=== PATIENT | female | born 1985 | race Caucasian/White ===

== ENCOUNTER → 2016-06-03 | Outpatient (CLI) | payer BC ==
[~2016-06-03] MED LIST: LEVO100T PO; LEVO200T PO; MTR600X PO; PRENTAB26 PO
[2016-06-03 18:47] LABS: THYROID STIMULATING HORMONE 1.09 uIu/ml (0.300-4.500)
== END | disposition home or self-care (01) ==
LOC: C.LAB 16:20
PROVIDERS: ATTEND Internal Medicine Endocrinology, Diabetes & Metabolism
DX: E05.00 Thyrotoxicosis with diffuse goiter without thyrotoxic crisis or storm (principal); O99.283 Endocrine, nutritional and metabolic diseases complicating pregnancy, third trimester; Z3A.28 28 weeks gestation of pregnancy; Z92.3 Personal history of irradiation

== ENCOUNTER → 2016-06-14 | Outpatient (CLI) | payer BC | END | disposition home or self-care (01) | LOC: C.LABSPEC 15:23 | PROVIDERS: ATTEND Obstetrics & Gynecology | DX: Z34.03 Encounter for supervision of normal first pregnancy, third trimester (principal) ==

== ENCOUNTER 2016-06-23 14:09 | Outpatient (CLI) | payer BC ==
[2016-06-24] MEDS ORDERED: LEVO100T PO (15:05)
[2016-06-24] MEDS ORDERED: PRENTAB26 PO (15:05)
[2016-06-24] MEDS ORDERED: LEVO200T PO (15:05)
== END 2016-06-23 16:00 | disposition home or self-care (01) ==
LOC: C.LD 14:09 → C.OPB 14:09
PROVIDERS: ATTEND Obstetrics & Gynecology
DX: O99.89 Other specified diseases and conditions complicating pregnancy, childbirth and the puerperium (principal); R03.0 Elevated blood-pressure reading, without diagnosis of hypertension; R51 Headache; Z3A.36 36 weeks gestation of pregnancy

== ENCOUNTER 2016-06-24 13:25 | Inpatient (IN) | payer BC ==
[~2016-06-24] VITALS: Ht 172.7 cm; Wt 78.6 kg
[2016-06-24] MEDS ORDERED: LACTATED RINGER'S 1000ML 1,000 ML IV PRN (13:49)
[2016-06-24 13:57] VITALS: Ht 172.7 cm; Wt 78.6 kg
[2016-06-24 14:12] LABS: HEMATOCRIT 33.8 % (37-47); MEAN CELL VOLUME 85.1 fL (80-100); MEAN CORPUSCULAR HEMOGLOBIN 29.5 pg (25-34); MEAN CORPUSCULAR HGB CONC 34.6 g/dl (32-36); MEAN PLATELET VOLUME 11.6 fL (7.4-10.4); PLATELET COUNT 152 K/uL (130-400); RED BLOOD COUNT 3.97 M/uL (4.2-5.4); WHITE BLOOD COUNT 7.25 K/uL (4.8-10.8)
[2016-06-24] MEDS ORDERED: MISOPROSTOLTAB 50 MCG TAB PO ONE (14:15)
[2016-06-24] MEDS ORDERED: PRENTAB26 PO (15:05)
[2016-06-24] MEDS ORDERED: LEVO200T PO (15:05)
[2016-06-24] MEDS ORDERED: LEVO100T PO (15:05)
[2016-06-24] MEDS ORDERED: NURSING VERBAL MED ORDER ONE (19:15)
[2016-06-24] MEDS ORDERED: DINOPROSTONE 10 MG INSERT PV SCH (19:25)
[2016-06-25] MEDS ORDERED: LEVOTHYROXINE 200 MCG TAB PO SCH (11:30)
[2016-06-25] MEDS ORDERED: DINOPROSTONE 10 MG INSERT PV ONE (14:00)
[2016-06-25] MEDS: LACTATED RINGER'S 1000ML 1,000 ML IV SCH (14:07)
[2016-06-25] MEDS: BUTORPHANOL TARTRATE 1 MG/ML VIAL IV PRN ×3 (14:12→21:41)
[2016-06-25] MEDS ORDERED: SODIUM CHLORIDE 0.65% NA SOLN 45 ML (OCEAN) ONE (20:22)
[2016-06-25] MEDS ORDERED: SODIUM CHLORIDE 0.65% NA SOLN 45 ML (OCEAN) PRN (20:30)
[2016-06-25] MEDS ORDERED: NURSING DECISION MEDICATION ORDER SCH (20:30)
[2016-06-25] MEDS ORDERED: FENTANYL 2MCG/ML ROPIV 1.25MG/ML 100ML BAG EPI ONE (22:19)
[2016-06-25] MEDS ORDERED: EpHEDrine SULFATE INJ 50 MG/ML AMP ONE (22:19)
[2016-06-25] MEDS ORDERED: BUPIVACAINE 0.25% 30 ML VIAL ONE (22:19)
[2016-06-25] MEDS ORDERED: FENTANYL CITRATE INJ 50 MCG/1 ML 2 ML VIAL ONE (22:20)
[2016-06-25] MEDS ORDERED: LACTATED RINGER'S 1000ML 500 ML IV PRN ×2 (23:32→23:40)
[2016-06-25] MEDS ORDERED: NALOXONE HCL INJ 1 MG in SODIUM CHLORIDE 0.9% 1000ML 1,000 ML IV PRN (23:32)
[2016-06-25] MEDS ORDERED: ONDANSETRON INJ 2 MG/ML 2 ML VIAL IV PRN (23:45)
[2016-06-25] MEDS ORDERED: NALBUPHINE HCL INJ 10 MG/ML AMP IV PRN (23:45)
[2016-06-25] MEDS ORDERED: EpHEDrine SULFATE INJ 50 MG/ML AMP IV PRN (23:45)
[2016-06-25] MEDS ORDERED: NALOXONE HCL INJ 0.4 MG/1 ML VIAL/CARP IV PRN (23:45)
[2016-06-25] MEDS ORDERED: FENTANYL 2MCG/ML ROPIV 1.25MG/ML 100ML BAG EPI PRN (23:45)
[2016-06-25] MEDS ORDERED: DiphenhydrAMINE HCL 50 MG/ML VIAL IV PRN (23:45)
[2016-06-25] MEDS ORDERED: OXYTOCIN 30 UNITS/500ML NSS IV PRN (23:45)
[2016-06-26] MEDS: LACTATED RINGER'S 1000ML 1,000 ML IV SCH (00:51)
[2016-06-26] MEDS ORDERED: DIPHTHERIA/TETANUS/PERTUSSIS 0.5 ML SYR/VIAL IM. ONE (07:00)
[2016-06-26] MEDS ORDERED: OXYTOCIN 30 UNITS/500ML NSS IV PRN (07:00)
[2016-06-26] MEDS ORDERED: LANOLIN OINT EXT PRN ×2 (07:00)
[2016-06-26] MEDS ORDERED: NURSING VERBAL MED ORDER ONE (07:00)
[2016-06-26] MEDS ORDERED: ACETAMINOPHEN/CODEINE 300/30MG TAB PO PRN (07:00)
[2016-06-26] MEDS ORDERED: OXYCODONE/ACETAMINOPHEN 5-325 TAB PO PRN (07:00)
[2016-06-26] MEDS ORDERED: SUPERCREAM 0.870 % 15GM JAR EXT PRN (07:00)
[2016-06-26] MEDS ORDERED: HYDROCORTISONE ACETATE 25 MG SUPP PR PRN (07:00)
[2016-06-26] MEDS ORDERED: ACETAMINOPHEN 325 MG TAB PO PRN (07:00)
[2016-06-26] MEDS ORDERED: BENZOCAINE 20% AER SPR 82.5 GM CAN EXT PRN (07:00)
--- NOTE | 2016-06-26 07:01 | Anesthesia Procedure Note ---
Anesthesia Epidural Removal Nt Date & Time Jun 26, 2016 at 07:02 Vital Signs Pain Intensity: 0.0 Notes Mental Status: alert / awake / arousable, participated in evaluation Nausea / Vomiting: adequately controlled Pain: adequately controlled Airway Patency, RR, SpO2: stable & adequate BP & HR: stable & adequate Hydration State: stable & adequate Neuraxial Anesthesia: was administered, sensory block is resolving Anesthetic Complications: no major complications apparent, pt satisfied with anesthetic care Epidural: removed without complications, with tip intact
[2016-06-26] MEDS ORDERED: LEVOTHYROXINE 100 MCG TAB PO SCH (07:30)
[2016-06-26] MEDS ORDERED: MTR600X PO (07:56)
--- NOTE | 2016-06-26 07:59 | Discharge Instructions ---
Discharge Instructions Admission Reason for Admission: Induction Discharge Discharge Diagnosis / Problem: PREMATURE RUPTURE OF MEMBRANES Discharge Goals Goal(s): Decrease discomfort, Improve nutritional status Activity Recommendations Activity Limitations: as noted below Lifting Limitations: no more than 10 pounds Exercise/Sports Limitations: until after follow-up appointment May Resume Sexual Activity: after follow-up appointment Shower/Bathe: no limitations Driving or Machine Use: resume 3 days after discharge . Instructions / Follow-Up Instructions / Follow-Up . ACTIVITY RECOMMENDATIONS: * Vaginal rest (no tampons, douching, intercourse) until after doctor 's visit. * control as discussed with doctor. * Wear a bra for 24 hours/day for comfort. SPECIAL CARE INSTRUCTIONS: Medications: * vitamins, one tablet daily. Continue taking until prescription is complete. Call you doctor if: * Temperature greater than or equal to 100.4 degrees F or 38.0 degrees C. * Bleeding becomes heavier than the heaviest part of your period - saturating a sanitary pad within an hour. * Passing large clots. * Unrelieved pain. * Bleeding has a foul smelling odor. * Signs and symptoms of phlebitis: leg pain, warm, red or swollen area on leg. incision has increased pain, redness, swelling, presence of any drainage, or if the incision starts to open up. FOLLOW UP VISIT: If appointment is not already scheduled: Please call doctor's office to schedule a follow-up appointment. Current Hospital Diet Patient's current hospital diet: Regular OB Diet Discahrge Diet Recommended Diet: Regular OB Diet Fluid Restriction: None Pending Studies Studies pending at discharge: no Medical Emergencies . Who to Call and When: Medical Emergencies: If at any time you feel your situation is an emergency, please call 911 immediately. . Non-Emergent Contact Non-Emergency issues call your: Primary Care Provider . . "Provider Documentation" section prepared by Ranjit Geller. VTE Core Measure Inpt VTE Proph given/why not?: Treatment not indicated
[2016-06-26] MEDS: DOCUSATE SODIUM 100 MG CAP PO SCH ×2 (08:15→20:07)
[2016-06-26] MEDS: FERROUS SULFATE 325 MG TAB PO SCH (08:15)
[2016-06-26] MEDS: IBUPROFEN 600 MG TAB PO PRN ×2 (08:15→13:58)
[2016-06-26] MEDS: PRENATAL VITAMIN TAB PO SCH (08:15)
[2016-06-26 10:05] VITALS: BP 130/76; PULSE 81; TEMP 36.6
[2016-06-26 12:20] VITALS: BP 125/74; PULSE 78; TEMP 36.7
--- NOTE | 2016-06-26 14:22 | DELIVERY SUMMARY ---
DATE OF OPERATION: 06/26/2016 A 30-year-old 1, para 1 dated with an early ultrasound. Her due date is 07/14/2016. Blood type is A positive, rubella immune. Vaginal beta strep negative, was complicated by toxemia , was followed in the office for several days, her blood pressure remained high. She had periodic headaches and she started to spill protein. Once she started to spill protein and sustained elevated blood pressure at approximately 37 weeks, she was brought in for induction. Induction was long, started with p.o. Cytotec 50 mcg and a Cervidil tape, then another Cervidil tape. After about 7 hours of the second Cervidil tape membranes ruptured spontaneously. Fluid was clear. She was then about 4-5 cm. She received epidural anesthesia and then contractions were augmented with IV Pitocin. She gradually went to full dilatation and the infant started to crown. There was a lot of peritoneal distention and after letting her push on the peritoneum for a good 30 or 40 minutes, we finally cut it midline at ease and she delivered a live male via direct occiput anterior over a midline episiotomy. There was a nuchal cord, which was easily reduced over the head. was suctioned through the mouth and the nose. Cord was clamped, cut by the father. Cord blood was taken for blood banking, then after that some additional cord blood was sent to the lab. Estimation of 1 and 5 minute Apgars were 5 and 7 respectively. looked somewhat small for gestational age. A second-degree laceration was repaired with 2-0 Vicryl. 2-0 Vicryl was used to repair the vaginal mucosa out and to beyond the hymenal ring. Two deep sutures of 2-0 Vicryl was used to approximate the peritoneal body and a separate deep suture was used to approximate the bulbocavernosus muscle. A separate deep suture was used to approximate the perirectal capsule and then a running subcuticular suture of 2-0 Vicryl was used to approximate the peritoneal skin edges. Following this, vag exam revealed no hematoma formation or sponges in the vagina. Estimated blood loss was 200 mL. I attest to the content of the Intraoperative Record and any orders documented therein. Any exceptio ns are noted below.
[2016-06-26 15:30] VITALS: BP 110/71; PULSE 75; TEMP 37
[2016-06-26] MEDS: ACETAMINOPHEN/CODEINE 300/30MG TAB PO PRN (20:08)
[2016-06-26 20:20] VITALS: BP 127/83; PULSE 84; TEMP 37.7
[2016-06-27 00:45] VITALS: BP 126/84; PULSE 94; TEMP 36.7
[2016-06-27 04:00] VITALS: BP 109/70; PULSE 80; TEMP 36.6
[2016-06-27] MEDS: IBUPROFEN 600 MG TAB PO PRN ×4 (04:02→21:16)
[2016-06-27] MEDS: ACETAMINOPHEN/CODEINE 300/30MG TAB PO PRN (04:03)
[2016-06-27 06:56] LABS: HEMATOCRIT 26.7 % (37-47)
[2016-06-27 07:20] VITALS: BP 116/79; PULSE 81; TEMP 36.7; O2SAT 98
[2016-06-27] MEDS: LEVOTHYROXINE 200 MCG TAB PO SCH (07:21)
--- NOTE | 2016-06-27 07:46 | Progress Note ---
Subjective Jun 27, 2016. Subjective conversation w/ patient Ambulation: ambulating normally Voiding: no voiding problems Passing Gas: Yes Diet Tolerance: Regular Diet Lochia: Small Review of Systems Constitutional: + fever Objective Vital Signs Date Time Temp Pulse Resp B/P Pulse Ox O2 Delivery O2 Flow Rate FiO2 06/27/16 04:00 36.6 80 18 109/70 06/27/16 00:45 Room Air 06/27/16 00:45 36.7 94 18 126/84 06/26/16 20:20 37.7 84 18 127/83 Room Air 06/26/16 15:30 Room Air 06/26/16 15:30 37.0 75 20 110/71 Room Air 06/26/16 12:20 36.7 78 20 125/74 06/26/16 10:05 36.6 81 20 130/76 Room Air 06/26/16 10:05 Room Air Physical Exam General Appearance: WELL-APPEARING Respiratory/Chest: lungs clear Abdomen: normal bowel sounds, non tender Fundus: Firm, Non-Tender Extremities: no pedal edema, no calf tenderness Laboratory Results Last 24 Hours Test 06/27/16 06:31 Hemoglobin 9.3 g/dL Hematocrit 26.7 % Assessment and Plan Post- Day#: 1
[2016-06-27] MEDS: DOCUSATE SODIUM 100 MG CAP PO SCH ×2 (08:41→21:16)
[2016-06-27] MEDS: FERROUS SULFATE 325 MG TAB PO SCH (08:41)
[2016-06-27] MEDS: PRENATAL VITAMIN TAB PO SCH (08:41)
[2016-06-27 15:40] VITALS: BP 122/83; PULSE 87; TEMP 36.6; O2SAT 97
[2016-06-27] MEDS ORDERED: BISACODYL 5 MG TABEC PO SCH (20:00)
[2016-06-27 23:40] VITALS: BP 126/81; PULSE 78; TEMP 36.8
[2016-06-28] MEDS ORDERED: BISACODYL 10 MG SUPP PR PRN (07:00)
[2016-06-28] MEDS: FERROUS SULFATE 325 MG TAB PO SCH (07:22)
[2016-06-28] MEDS: LEVOTHYROXINE 200 MCG TAB PO SCH (07:22)
[2016-06-28] MEDS: DOCUSATE SODIUM 100 MG CAP PO SCH ×2 (07:23→20:56)
[2016-06-28] MEDS: PRENATAL VITAMIN TAB PO SCH (07:23)
[2016-06-28 07:58] VITALS: BP 123/82; PULSE 82; TEMP 36.7; O2SAT 98
[2016-06-28] MEDS: IBUPROFEN 600 MG TAB PO PRN ×4 (08:34→20:56)
--- NOTE | 2016-06-28 09:22 | Progress Note ---
Subjective Jun 28, 2016. Subjective conversation w/ patient Ambulation: ambulating normally Voiding: no voiding problems Passing Gas: Yes Diet Tolerance: Regular Diet Lochia: Small Feeding Type: Breast Feeding Review of Systems Constitutional: + fever Objective Vital Signs Date Time Temp Pulse Resp B/P Pulse Ox O2 Delivery O2 Flow Rate FiO2 06/28/16 08:05 Room Air 06/28/16 07:58 36.7 82 18 123/82 98 Room Air 06/28/16 07:30 Room Air 06/27/16 23:40 Room Air 06/27/16 23:40 36.8 78 18 126/81 Room Air 06/27/16 15:40 Room Air 06/27/16 15:40 36.6 87 16 122/83 97 Room Air Physical Exam General Appearance: WELL-APPEARING Respiratory/Chest: lungs clear Abdomen: non tender Fundus: Firm, Non-Tender Extremities: no pedal edema, no calf tenderness Assessment and Plan Post- Day#: 2
--- NOTE | 2016-06-28 09:23 | History & Physical Bridge Note ---
H&P Re-Evaluation Bridge Note: I have examined the patient, reviewed the History & Physical and in the interval since the performance of the History & Physical I have noted the following changes of clinical significance: No changes noted
[2016-06-28 16:45] VITALS: BP 118/79; PULSE 78; TEMP 36.8; O2SAT 98
[2016-06-28 18:30] VITALS: BP_DIAS 79; PULSE 78; TEMP 36.8
== END 2016-06-28 21:00 | disposition home or self-care (01) | DRG 774 ==
LOC: C.LD 13:25 → C.OBG 06-26 10:17
PROVIDERS: ADMIT Obstetrics & Gynecology; ATTEND Obstetrics & Gynecology
PROC: 0W8NXZZ Division of Female Perineum, External Approach (ICD-10-PCS; principal; 2016-06-26)
PROC: 3E0P7GC Introduction of Other Therapeutic Substance into Female Reproductive, Via Natural or Artificial Opening (ICD-10-PCS; principal; 2016-06-26)
PROC: 3E033VJ Introduction of Other Hormone into Peripheral Vein, Percutaneous Approach (ICD-10-PCS; principal; 2016-06-26)
PROC: 10E0XZZ Delivery of Products of Conception, External Approach (ICD-10-PCS; principal; 2016-06-26)
PROC: 0KQM0ZZ Repair Perineum Muscle, Open Approach (ICD-10-PCS; principal; 2016-06-26)
DX: O14.94 Unspecified pre-eclampsia, complicating childbirth (principal); O99.42 Diseases of the circulatory system complicating childbirth; O69.81X0 Labor and delivery complicated by cord around neck, without compression, not applicable or unspecified; O42.92 Full-term premature rupture of membranes, unspecified as to length of time between rupture and onset of labor; R01.1 Cardiac murmur, unspecified; O70.1 Second degree perineal laceration during delivery; O99.284 Endocrine, nutritional and metabolic diseases complicating childbirth; E03.9 Hypothyroidism, unspecified; Z37.0 Single live birth; Z3A.37 37 weeks gestation of pregnancy; Z23 Encounter for immunization

== ENCOUNTER → 2016-08-15 | Outpatient (CLI) | payer BC | END | disposition home or self-care (01) | LOC: C.PAPS 15:41 | PROVIDERS: ATTEND Obstetrics & Gynecology | DX: Z39.2 Encounter for routine postpartum follow-up (principal) ==

== ENCOUNTER → 2016-10-28 | Outpatient (CLI) | payer BC ==
[2016-10-28 11:25] LABS: THYROID STIMULATING HORMONE 0.207 uIu/ml (0.300-4.500)
== END | disposition home or self-care (01) ==
LOC: C.LABBC 07:58
PROVIDERS: ATTEND Nurse Practitioner Family
DX: E89.0 Postprocedural hypothyroidism (principal); E05.00 Thyrotoxicosis with diffuse goiter without thyrotoxic crisis or storm; Z92.3 Personal history of irradiation

== ENCOUNTER → 2017-01-13 | Outpatient (CLI) | payer BC | END | disposition home or self-care (01) | LOC: C.LABBC 13:57 | PROVIDERS: ATTEND Nurse Practitioner Family | DX: E89.0 Postprocedural hypothyroidism (principal) ==

== ENCOUNTER → 2017-02-14 | Outpatient (CLI) | payer BC ==
[2017-02-14 11:33] LABS: THYROID STIMULATING HORMONE 3.22 uIu/ml (0.300-4.500)
== END | disposition home or self-care (01) ==
LOC: C.LABBC 08:17
PROVIDERS: ATTEND Internal Medicine Endocrinology, Diabetes & Metabolism
DX: E89.0 Postprocedural hypothyroidism (principal)

== ENCOUNTER → 2017-07-13 | Outpatient (CLI) | payer BC | END | disposition home or self-care (01) | LOC: C.LABBC 12:03 | PROVIDERS: ATTEND Nurse Practitioner Family | DX: E05.00 Thyrotoxicosis with diffuse goiter without thyrotoxic crisis or storm (principal); Z92.3 Personal history of irradiation ==

== ENCOUNTER → 2017-07-24 | Outpatient (CLI) | payer BC ==
[2017-07-24 09:31] LABS: BASO % 0.2 %; BASO ABS # 0.01 K/uL (0-0.2); EOS ABS # 0.04 K/uL (0-0.5); HEMATOCRIT 38.1 % (37-47); HEMOGLOBIN 13.2 g/dL (12.0-16.0); IG# 0.01 K/uL (0.00-0.02); LYMPH % 37.3 %; LYMPH ABS # 1.57 K/uL (1.2-3.4); MEAN CELL VOLUME 85.6 fL (80-100); MEAN CORPUSCULAR HEMOGLOBIN 29.7 pg (25-34); MEAN CORPUSCULAR HGB CONC 34.6 g/dl (32-36); MEAN PLATELET VOLUME 10.6 fL (7.4-10.4); MONO % 7.8 %; MONO ABS # 0.33 K/uL (0.11-0.59); NEUT % 53.5 %; NEUT ABS # 2.25 K/uL (1.4-6.5); PLATELET COUNT 206 K/uL (130-400); RED CELL DISTRIBUTION WIDTH CV 12.4 % (11.5-14.5); RED CELL DISTRIBUTION WIDTH SD 38.9 fL (36.4-46.3); WHITE BLOOD COUNT 4.21 K/uL (4.8-10.8)
[2017-07-24 09:45] LABS: BLOOD UREA NITROGEN 13 mg/dl (7-18); CALCIUM 8.7 mg/dl (8.5-10.1); CARBON DIOXIDE 28 mmol/L (21-32); CREATININE 0.74 mg/dl (0.60-1.20); GLUCOSE 85 mg/dl (70-99); POTASSIUM 3.8 mmol/L (3.5-5.1); SODIUM 137 mmol/L (136-145)
== END | disposition home or self-care (01) ==
LOC: C.LAB 07:51
PROVIDERS: ATTEND Internal Medicine Endocrinology, Diabetes & Metabolism
DX: R00.2 Palpitations (principal); E89.0 Postprocedural hypothyroidism; E05.00 Thyrotoxicosis with diffuse goiter without thyrotoxic crisis or storm; R42 Dizziness and giddiness; Z92.3 Personal history of irradiation

== ENCOUNTER → 2017-09-07 | Outpatient (CLI) | payer BC | END | disposition home or self-care (01) | LOC: C.LABBC 12:22 | PROVIDERS: ATTEND Nurse Practitioner Family | DX: E89.0 Postprocedural hypothyroidism (principal) ==

== ENCOUNTER → 2017-09-19 | Outpatient (CLI) | payer BC ==
--- NOTE | 2017-09-20 12:21 | ECHOCARDIOGRAM REPORT ---
*NOTICE TO RECEIVING CONSTITUTION PARTY AGENCY This information is strictly Confidential and protected under [place] law. [place] law prohibits you from making any further disclosure of this information unless further disclosure is expressly permitted by the written consent of the person to whom it pertains or is authorized by law. A general authorization for the release of medical or other information is not sufficient for this purpose. Hospital accepts no responsibility if the information is made available to any other person, INCLUDING THE PATIENT. Interpretation Summary * Name: JOSE MCBRIDE Study Date: 09/19/2017 02:00 PM BP: 120/70 mmHg * Patient Location: [facility] HR: 66 * : 1985 (M/d/yyyy) Gender: Female Height: 68 in * Age: 31 yrs Ethnicity: CA Weight: 130 lb * Ordering Physician: Ferny Garrett * Referring Physician: Ferny Garrett * Performed By: Diana Jolly RCS * * Reason For Study: PALPITATIONS / LIGHTHEADEDNESS * BSA: 1.7 m2 * -- Conclusions -- * Left ventricular systolic function is normal. * No regional wall motion abnormalities noted. * Ejection Fraction = 60-65%. * No significant valvular pathology. Procedure Details * A complete two-dimensional transthoracic echocardiogram was performed (2D, M-mode, Doppler and color flow Doppler). Left Ventricle * The left ventricle is normal in size. * There is normal left ventricular wall thickness. * Ejection Fraction = 60-65%. * Left ventricular systolic function is normal. * No regional wall motion abnormalities noted. Right Ventricle * The right ventricle is normal size. * The right ventricular systolic function is normal as assessed by tricuspid annular plane systolic excursion (TAPSE) (normal >1.5 cm). Atria * The left atrial size is normal. * Right atrial size is normal. * No ASD detected; PFO is not assessed. Mitral Valve * The mitral valve anatomy is normal. * There is no mitral valve stenosis. * There is trace mitral regurgitation. Tricuspid Valve * The tricuspid valve anatomy is normal. * There is no tricuspid stenosis. * There is trace tricuspid regurgitation. Aortic Valve * The aortic valve is normal in structure and function. * No hemodynamically significant valvular aortic stenosis. * No aortic regurgitation is present. Pulmonic Valve * The pulmonary valve is not well seen, but the Doppler examination is normal without significant regurgitation or stenosis. Great Vessels * The aortic root and proximal ascending aorta are normal sized. * The pulmonary is not well visualized. Pericardium/Pleural * There is no pericardial effusion. Great Vessels * Normal inferior vena cava size and collapsability with sniff indicates a normal right atrial pressure of 3 mmHg MMode 2D Measurements and Calculations IVSd 0.61 cm IVSs 0.75 cm LVIDd 4.7 cm LVIDs 3.2 cm LVPWd 0.81 cm LVPWs 1.3 cm IVS/LVPW 0.75 FS 31.0 % EDV(Teich) 102.2 ml ESV(Teich) 42.2 ml EF(Teich) 58.7 % EDV(cubed) 103.7 ml ESV(cubed) 34.0 ml EF(cubed) 67.2 % % IVS thick 22.8 % % LVPW thick 63.7 % LV mass(C)d 104.9 grams LV mass(C)dI 61.7 grams/m\S\2 LV mass(C)s 97.4 grams LV mass(C)sI 57.2 grams/m\S\2 SV(Teich) 60.0 ml SI(Teich) 35.3 ml/m\S\2 SV(cubed) 69.7 ml SI(cubed) 40.9 ml/m\S\2 Ao root diam 3.2 cm Ao root area 7.8 cm\S\2 ACS 2.4 cm LA dimension 2.1 cm LA/Ao 0.67 LVAd ap4 26.7 cm\S\2 LVLd ap4 8.4 cm EDV(MOD-sp4) 73.5 ml EDV(sp4-el) 72.0 ml LVAs ap4 14.4 cm\S\2 LVLs ap4 7.5 cm ESV(MOD-sp4) 25.2 ml ESV(sp4-el) 23.2 ml EF(MOD-sp4) 65.8 % EF(sp4-el) 67.8 % LVAd ap2 28.4 cm\S\2 LVLd ap2 8.3 cm EDV(MOD-sp2) 84.9 ml EDV(sp2-el) 82.5 ml LVAs ap2 17.7 cm\S\2 LVLs ap2 7.4 cm ESV(MOD-sp2) 38.4 ml ESV(sp2-el) 36.3 ml EF(MOD-sp2) 54.8 % EF(sp2-el) 56.1 % LVLd %diff -0.69 % EDV(MOD-bp) 79.3 ml LVLs %diff -2.53 % ESV(MOD-bp) 30.5 ml EF(MOD-bp) 61.6 % SV(MOD-sp4) 48.4 ml SI(MOD-sp4) 28.4 ml/m\S\2 SV(MOD-sp2) 46.6 ml SI(MOD-sp2) 27.4 ml/m\S\2 SV(MOD-bp) 48.8 ml SI(MOD-bp) 28.7 ml/m\S\2 SV(sp4-el) 48.8 ml SI(sp4-el) 28.7 ml/m\S\2 SV(sp2-el) 46.2 ml SI(sp2-el) 27.2 ml/m\S\2 Doppler Measurements and Calculations MV E max jane 89.2 cm/sec MV A max jane 30.6 cm/sec MV E/A 2.9 MV dec time 0.23 sec Ao V2 max 133.0 cm/sec Ao max PG 7.1 mmHg Ao max PG (full) 4.2 mmHg LV V1 max PG 2.9 mmHg LV V1 max 85.4 cm/sec PA V2 max 89.6 cm/sec PA max PG 3.2 mmHg
== END | disposition home or self-care (01) ==
LOC: C.CPL 12:47
PROVIDERS: ATTEND Family Medicine
DX: R00.2 Palpitations (principal); R42 Dizziness and giddiness

== ENCOUNTER → 2018-01-08 | Outpatient (CLI) | payer BC | END | disposition home or self-care (01) | LOC: C.PAPS 14:47 | PROVIDERS: ATTEND Obstetrics & Gynecology | DX: Z12.4 Encounter for screening for malignant neoplasm of cervix (principal) ==

== ENCOUNTER 2018-11-30 11:52 | Inpatient (IN) ==
[2018-11-30] MEDS ORDERED: OXYTOCIN 30 UNITS/500 ML BAG IV PRN (19:02)
[2018-11-30 19:38] LABS: Hematocrit (blood only) 37.1 % (37-47); Mean Corpuscular Volume 86.9 fL (80-100); Mean Platelet Volume 11.4 fL (7.4-10.4); Platelet Count 192 K/uL (130-400); RDW Coefficient of Variation 12.6 % (11.5-14.5); RDW Standard Deviation 40.1 fL (36.4-46.3); Red Blood Count 4.27 M/uL (4.2-5.4); White Blood Count 9.42 K/uL (4.8-10.8)
[2018-11-30] MEDS ORDERED: miSOPROStol 50 MCG TAB PO SCH (20:30)
[2018-11-30] MEDS ORDERED: BUTORPHANOL TARTRATE 2 MG/ML VIAL IV PRN (20:42)
[2018-12-01] MEDS ORDERED: DINOPROSTONE 10 MG INSERT PV ONE (00:55)
[2018-12-01] MEDS: LACTATED RINGER'S 1,000 ML IV PRN ×2 (01:38→16:18)
[2018-12-01] MEDS ORDERED: LEVOTHYROXINE SODIUM 200 MCG TABLET PO SCH (10:00)
[2018-12-01] MEDS ORDERED: BUPIVACAINE 0.25% 30 ML VIAL ONE (17:11)
[2018-12-01] MEDS ORDERED: fentaNYL citrate 100 MCG/2 ML VIAL ONE (17:12)
[2018-12-01] MEDS ORDERED: ePHEDrine sulfate 50 MG/ML AMP ONE (17:12)
[2018-12-01] MEDS ORDERED: fentaNYL 2MCG/ML ROPIV 1.25MG/ML 100 ML BAG EPI ONE (17:13)
[2018-12-01] MEDS ORDERED: BISACODYL 10 MG SUPP PR PRN (18:40)
[2018-12-01] MEDS ORDERED: DIPHTHERIA/TETANUS/PERTUSSIS 0.5 ML SYR/VIAL IM ONE (18:40)
[2018-12-01] MEDS ORDERED: BENZOCAINE 20% AER SPR 82.5 GM CAN EXT PRN (18:40)
[2018-12-01] MEDS ORDERED: OXYTOCIN 30 UNITS/500 ML BAG IV PRN (18:40)
[2018-12-01] MEDS ORDERED: HYDROCORTISONE ACETATE 25 MG SUPP PR PRN (18:40)
[2018-12-01] MEDS ORDERED: SUPERCREAM 0.870% 15 GM JAR EXT PRN (18:40)
[2018-12-01] MEDS ORDERED: ACETAMINOPHEN W/CODEINE #3 1 TAB PO PRN (18:40)
[2018-12-01] MEDS ORDERED: OXYCODONE/ACETAMINOPHEN 5mg/325mg TAB PO PRN (18:40)
[2018-12-01] MEDS: IBUPROFEN 600 MG TAB PO PRN ×2 (19:07→23:18)
[2018-12-01] MEDS ORDERED: cefOXitin 2,000 MG in DEXTROSE 5% 50 ML IV ONE (20:00)
[2018-12-01] MEDS: DOCUSATE SODIUM 100 MG CAP PO SCH (23:20)
--- NOTE | 2018-12-01 23:49 | Operative Report ---
DATE OF OPERATION: 12/01/2018 Mrs. Brower is a 33-year-old 2, para 2. Her course was complicated by elevated blood pressure, suspected toxemia. She was good up until about 36 weeks and 4 days. She had her first elevated blood pressure, at that time her weight was 185 pounds, better at bed rest, came back several days later, she had lost 7 pounds, blood pressure was normal. Check a few days later, blood pressure was up again and diastolics were over 100, documented diastolics over 100 on 2 separate occasions. Days apart, she was also having problems with some headaches associated with this. She was admitted for induction. On admission, she was asymptomatic. Her blood pressure was normal and we started with p.o. 50 mcg Cytotec. She contracted sporadically, then had a Cervidil tape; 12 hours later, the tape was removed, at that time when I removed the tape, she was about 3-4 cm dilated, vertex presentation. She then contracted on her own, had a couple doses of IV Stadol, was about to get an epidural at pressure and was found to be fully dilated with membranes intact. Ruptured the water. Amniotic fluid was clear; however, towards the end, she had persistent bradycardia despite mass oxygen at high flow, pushed several times, there were 1 or 2 small week recoveries of the heart rate, eventually after pushing for several times and after about 10 minutes of low heart rate, we applied Thompson forceps and with a steady pull, delivered the head via direct occiput anterior position. There was a tight nuchal cord which had to be clamped and cut. Then the shoulders were delivered without difficulty and was taken to the resuscitation bed. Cord blood was taken with IV Pitocin running, the placenta was removed intact. Inspection of the peritoneum revealed a fourth degree laceration completely through the rectal sphincter muscle. The area was infiltrated with local. We then approximated the rectal mucosa out to beyond the sphincter with interrupted U sutures of 3-0 chromic. I then anchored a suture at the top of the vaginal defect, approximated the vaginal mucosa chcf towards the introitus and then put a second suture and the rectovaginal septum and then continued that and approximated the posterior part of the rectal sphincter capsule and then continued it around in a donut-shaped fashion to do a good sturdy repair of the sphincter capsule with the rectal sphincter muscle, just tucked into the capsule itself. After that, we did 2 interrupted to approximate the perineal body and a separate interrupted to approximate the bulbocavernosus muscle, 1 or 2 additional interrupted to approximate the sphincter capsule, then a running subcuticular Vicryl was used to approximate the perineal skin edges. Following this vag exam, we removed all sponges from the vagina. There was no hematoma formation, rectovaginal examination revealed good sphincter tone and no stitches through the rectal mucosa. Estimated blood loss was 200 mL. Apgars were deferred to the nurses. I attest to the content of the Intraoperative Record and any orders documented therein. Any exception s are noted below.
[2018-12-02] MEDS: IBUPROFEN 600 MG TAB PO PRN ×4 (03:18→16:38)
[2018-12-02] MEDS: LEVOTHYROXINE SODIUM 137 MCG TABLET PO SCH (06:10)
[2018-12-02 06:45] LABS: Hematocrit (blood only) 33.4 % (37-47); Hemoglobin 11.4 g/dL (12.0-16.0); Mean Corpuscular Hgb Conc 34.1 g/dL (32-36); Mean Corpuscular Volume 87.7 fL (80-100); Mean Platelet Volume 10.9 fL (7.4-10.4); Platelet Count 177 K/uL (130-400); RDW Coefficient of Variation 12.8 % (11.5-14.5); RDW Standard Deviation 41.1 fL (36.4-46.3); Red Blood Count 3.81 M/uL (4.2-5.4)
[2018-12-02] MEDS: DOCUSATE SODIUM 100 MG CAP PO SCH ×2 (09:07→20:43)
[2018-12-02] MEDS: PRENATAL VITAMIN 1 TAB PO SCH (09:07)
[2018-12-02] MEDS: FERROUS SULFATE 325 MG TAB PO SCH (09:07)
[2018-12-02] MEDS: ACETAMINOPHEN 325 MG TAB PO PRN ×2 (09:08→16:38)
--- NOTE | 2018-12-02 11:56 | Obstetrical Progress Note ---
Date of Service December 02, 2018 Physical Exam Physical Exam: abdomen soft and non tender vaginal bleeding scant to moderate no calf tenderness ambulating well 11.4 hgb Results & Data Vital Signs (Past 12 Hours) Vital Signs Temp Pulse Resp BP Pulse Ox 12/02/18 08:10 36.8 C 89 20 121/88 96 12/02/18 04:06 36.5 C 75 16 126/86 98
[2018-12-02] MEDS ORDERED: BISACODYL 5 MG TABEC PO SCH (20:00)
[2018-12-03] MEDS: ACETAMINOPHEN 325 MG TAB PO PRN (05:50)
[2018-12-03] MEDS: IBUPROFEN 600 MG TAB PO PRN (05:51)
[2018-12-03] MEDS: LEVOTHYROXINE SODIUM 137 MCG TABLET PO SCH (05:53)
[2018-12-03 06:58] LABS: Hematocrit (blood only) 31.5 % (37-47); Hemoglobin 10.5 g/dL (12.0-16.0)
[2018-12-03] MEDS: DOCUSATE SODIUM 100 MG CAP PO SCH (08:14)
--- NOTE | 2018-12-03 09:12 | Obstetrical Progress Note ---
Date of Service December 03, 2018 Physical Exam Physical Exam: abdomen soft and non tender vaginal bleeding scant to moderate no calf tenderness ambulating well hgb 10.5 Results & Data Vital Signs (Past 12 Hours) Vital Signs Temp Pulse Resp BP 12/02/18 23:45 36.4 C L 73 18 123/80
[2018-12-03] MEDS: PRENATAL VITAMIN 1 TAB PO SCH (09:57)
[2018-12-03] MEDS: FERROUS SULFATE 325 MG TAB PO SCH (09:57)
--- NOTE | 2018-12-06 08:29 | Coding Query ---
CODING QUERY To promote full compliance with coding requirements relating to patient care, provider participation is requested in all cases of truck driver heavy uncertainty. Please assist us with the question(s) below: Coding Question(s): Dr. Lin, The operative report states, "The patient's course was complicated by elevated blood pressure, suspected toxemia." Please clarify if the patient had: ( x ) gestational hypertension ( ) pre-existing hypertension ( ) pre-eclampsia ( ) mild (x ) moderate ( ) severe ( ) other, please explain ( ) other, please explain Also, please provide the weeks of gestation at the time of : 37 weeks 5 days Physician's Response(s): Thank you for your time, LUIS ANGEL Begum, RETAIL EVENT COORDINATOR [employer]
--- NOTE | 2018-12-13 18:48 | Discharge Summary ---
Mrs. Brower is a 2, para 2 brought in for induction for elevated blood pressure. Went to full dilatation. Delivery was complicated by prolonged bradycardia which we had to apply Thompson forceps to in order to deliver the infant secondary to prolonged bradycardia without recovery. At the time of delivery she had nuchal cord x1. She did incur a fourth degree laceration. Laceration was repaired anatomically. She did receive 1 dose of prophylactic antibiotics due to this and was discharged on the 2nd postdelivery day in good condition.
== END 2018-12-03 14:20 | disposition home or self-care (01) | DRG 768 ==
LOC: 4S1 18:58 → 4S2 12-01 21:13